=== PATIENT | female | born 1940 | race Two or more races ===

== ENCOUNTER → 2016-09-20 | Outpatient (CLI) | payer MEDICARE, OTHER ==
[~2016-09-20] MED LIST: ALPR0.25 PO; ANAS1TAB6 PO; CLOP75TA28 PO; HYDR25TA4 PO; LEVO200T45 PO; LOSA50TA6 PO; NOR5T PO; PANT40TA2 PO; PIO30T PO; POTATAB17 PO; ROSU40TA PO
[2016-09-20 09:59] LABS: Urine RBC None Seen /hpf (0 - 4)
[2016-09-20 10:30] LABS: Basophils # (auto) 0 uL; Basophils % (auto) 0.6 % (0.0-2.0); Eosinophils # (auto) 0.1 uL; Eosinophils % (auto) 2.1 % (0.0-7.0); Hematocrit 46.1 % (36.0-46.0); Hemoglobin 14.9 g/dL (12.2-16.2); Lymphocytes # (auto) 1.2 uL; Lymphocytes % (auto) 19.5 % (10.0-50.0); Mean Corpuscular Hemoglobin 30.1 pg (28.0-32.0); Mean Corpuscular Hgb Conc. 32.2 g/dL (32.0-36.0); Mean Corpuscular Volume 93.3 fL (80.0-100.0); Mean Platelet Volume 8.9 fL (7.4-10.4); Monocytes # (auto) 0.4 uL; Monocytes % (auto) 6.7 % (0.0-12.0); Neutrophils # (auto) 4.5 uL; Neutrophils % (auto) 71.1 % (37.0-80.0); Platelet Count (auto) 245 10^3/uL (140-450); Red Cell Distribution Width 12.6 % (11.6-16.0); White Blood Cell 6.3 10^3/uL (4.4-10.8)
[2016-09-20 10:40] LABS: Urine Bilirubin Negative (Negative); Urine Blood Negative /uL (Negative); Urine Color Yellow (Yellow); Urine Glucose Normal (Normal); Urine Ketone Negative (Negative); Urine Nitrite Negative (Negative); Urine Squamous Epithelial Cell FEW /hpf (<5); Urine Urobilinogen Normal (Negative)
[2016-09-20 10:48] LABS: Albumin 3.8 g/dL (3.4-5.0); BUN/Creatinine Ratio 16.7; Bilirubin, Total 0.5 mg/dL (0.2-1.0); Calcium 9.4 mg/dL (8.5-10.1); Potassium 3.6 mmol/L (3.5-5.1); Total Protein 7.3 g/dL (6.4-8.2)
== END | disposition home or self-care (01) ==
LOC: LAB 08:45
PROVIDERS: ATTEND Internal Medicine
DX: Z00.00 Encounter for general adult medical examination without abnormal findings (principal)
CPT/HCPCS: 36415; 80053; 80061; 81001; 82043; 83036; 84443; 85025

== ENCOUNTER → 2016-09-20 | Outpatient (CLI) | payer MEDICARE, OTHER | END | disposition home or self-care (01) | LOC: LAB 10:00 | PROVIDERS: ATTEND Physician Assistant | DX: L57.9 Skin changes due to chronic exposure to nonionizing radiation, unspecified (principal) ==

== ENCOUNTER → 2016-11-12 | Outpatient (CLI) | payer MEDICARE, OTHER ==
[2016-11-12 09:14] LABS: Basophils # (auto) 0 uL; Basophils % (auto) 0.7 % (0.0-2.0); Eosinophils # (auto) 0.1 uL; Eosinophils % (auto) 2.1 % (0.0-7.0); Hematocrit 46.6 % (36.0-46.0); Hemoglobin 15.6 g/dL (12.2-16.2); Lymphocytes % (auto) 30.1 % (10.0-50.0); Mean Corpuscular Hgb Conc. 33.5 g/dL (32.0-36.0); Mean Corpuscular Volume 92.4 fL (80.0-100.0); Mean Platelet Volume 8.4 fL (7.4-10.4); Monocytes # (auto) 0.5 uL; Neutrophils # (auto) 3.9 uL; Neutrophils % (auto) 59.1 % (37.0-80.0); Platelet Count (auto) 263 10^3/uL (140-450); Red Cell Distribution Width 13.3 % (11.6-16.0); White Blood Cell 6.5 10^3/uL (4.4-10.8)
[2016-11-12 09:43] LABS: Albumin 3.9 g/dL (3.4-5.0); BUN/Creatinine Ratio 16.5; Bilirubin, Total 0.4 mg/dL (0.2-1.0); Calcium 9.8 mg/dL (8.5-10.1); Total Protein 7.5 g/dL (6.4-8.2)
== END | disposition home or self-care (01) ==
LOC: LAB 07:51
PROVIDERS: ATTEND Internal Medicine
DX: I74.9 Embolism and thrombosis of unspecified artery (principal); C50.912 Malignant neoplasm of unspecified site of left female breast; K22.719 Barrett's esophagus with dysplasia, unspecified
CPT/HCPCS: 36415; 80053; 83615; 85025

== ENCOUNTER → 2017-01-14 | Outpatient (CLI) | payer MEDICARE, OTHER ==
[~2017-01-14] MED LIST changes: +HYDR-4663 PO; -NOR5T PO
== END | disposition home or self-care (01) ==
LOC: LAB 07:27
PROVIDERS: ATTEND Internal Medicine
DX: R05 Cough (principal)
CPT/HCPCS: 36415; 82565; 83036; 84443; 84520

== ENCOUNTER → 2017-02-28 | Outpatient (CLI) | payer MEDICARE, OTHER | END | disposition home or self-care (01) | LOC: Rad HDHVI 14:39 | PROVIDERS: ATTEND Internal Medicine Cardiovascular Disease | DX: I08.0 Rheumatic disorders of both mitral and aortic valves (principal); G45.9 Transient cerebral ischemic attack, unspecified | CPT/HCPCS: 93306 ==

== ENCOUNTER → 2017-03-08 | Outpatient (CLI) | payer MEDICARE, OTHER ==
[~2017-03-08] MED LIST changes: +ADENOSINE 67 MG in GIVE UN-DILUTED 0 ML IV ONE; +ADENOSINE 90 MG/30 ML INJ IV ONE
== END | disposition home or self-care (01) ==
LOC: Rad HDHVI 13:17
PROVIDERS: ATTEND Internal Medicine Cardiovascular Disease
DX: I08.0 Rheumatic disorders of both mitral and aortic valves (principal); I10 Essential (primary) hypertension; E11.9 Type 2 diabetes mellitus without complications; R03.0 Elevated blood-pressure reading, without diagnosis of hypertension; E78.00 Pure hypercholesterolemia, unspecified
CPT/HCPCS: 78452; 93005; 96374; 96375; A9500; J0153

== ENCOUNTER → 2017-04-21 | Outpatient (CLI) | payer MEDICARE, OTHER ==
[~2017-04-21] MED LIST changes: -ADENOSINE 67 MG in GIVE UN-DILUTED 0 ML IV ONE; -ADENOSINE 90 MG/30 ML INJ IV ONE
== END | disposition home or self-care (01) ==
LOC: LAB 07:46
DX: I67.1 Cerebral aneurysm, nonruptured (principal)
CPT/HCPCS: 36415; 82565; 84520

== ENCOUNTER → 2017-05-19 | Outpatient (CLI) | payer MEDICARE, OTHER ==
[2017-05-19 07:57] LABS: Basophils # (auto) 0 uL; Eosinophils # (auto) 0.1 uL; Eosinophils % (auto) 2.6 % (0.0-7.0); Hematocrit 43.3 % (36.0-46.0); Hemoglobin 14.5 g/dL (12.2-16.2); Lymphocytes # (auto) 1.6 uL; Lymphocytes % (auto) 35.8 % (10.0-50.0); Mean Corpuscular Hemoglobin 31.8 pg (28.0-32.0); Mean Corpuscular Hgb Conc. 33.6 g/dL (32.0-36.0); Mean Corpuscular Volume 94.7 fL (80.0-100.0); Mean Platelet Volume 8.4 fL (6.9-10.8); Monocytes # (auto) 0.4 uL; Monocytes % (auto) 7.8 % (0.0-12.0); Neutrophils # (auto) 2.4 uL; Neutrophils % (auto) 52.8 % (37.0-80.0); Nucleated Red Blood Cells % 0.2 %; Platelet Count (auto) 171 10^3/uL (140-450); Red Cell Distribution Width 13.2 % (11.8-14.3); White Blood Cell 4.5 10^3/uL (4.4-10.8)
[2017-05-19 08:29] LABS: Albumin 3.7 g/dL (3.4-5.0); BUN/Creatinine Ratio 20.2; Bilirubin, Total 0.4 mg/dL (0.2-1.0); Calcium 9.1 mg/dL (8.5-10.1); Potassium 3.5 mmol/L (3.5-5.1); Total Protein 7.2 g/dL (6.4-8.2)
== END | disposition home or self-care (01) ==
LOC: LAB 07:24
PROVIDERS: ATTEND Internal Medicine
DX: C50.912 Malignant neoplasm of unspecified site of left female breast (principal); K22.719 Barrett's esophagus with dysplasia, unspecified
CPT/HCPCS: 36415; 80053; 83615; 85025

== ENCOUNTER → 2017-07-18 | Outpatient (CLI) | payer MEDICARE, OTHER ==
[~2017-07-18] MED LIST changes: -HYDR-4663 PO; +HYDR-4683 PO
== END | disposition home or self-care (01) ==
LOC: LAB 13:26
PROVIDERS: ATTEND Internal Medicine
DX: C50.911 Malignant neoplasm of unspecified site of right female breast (principal)
CPT/HCPCS: 36415; 82565; 84520; 86300

== ENCOUNTER → 2017-10-06 | Outpatient (CLI) | payer MEDICARE, OTHER | END | disposition home or self-care (01) | LOC: LAB 06:39 | DX: I67.1 Cerebral aneurysm, nonruptured (principal) | CPT/HCPCS: 36415; 82565; 84520 ==

== ENCOUNTER → 2017-10-21 | Outpatient (CLI) | payer MEDICARE, OTHER ==
[2017-10-21 09:40] LABS: Basophils # (auto) 0 uL; Basophils % (auto) 0.5 % (0.0-2.0); Eosinophils # (auto) 0.1 uL; Eosinophils % (auto) 2.7 % (0.0-7.0); Hematocrit 45.2 % (36.0-46.0); Hemoglobin 15.2 g/dL (12.2-16.2); Lymphocytes # (auto) 1.3 uL; Lymphocytes % (auto) 33.1 % (10.0-50.0); Mean Corpuscular Hemoglobin 31.8 pg (28.0-32.0); Mean Corpuscular Hgb Conc. 33.5 g/dL (32.0-36.0); Mean Corpuscular Volume 94.8 fL (80.0-100.0); Monocytes # (auto) 0.3 uL; Monocytes % (auto) 7.8 % (0.0-12.0); Neutrophils # (auto) 2.2 uL; Neutrophils % (auto) 55.9 % (37.0-80.0); Nucleated Red Blood Cells % 0.3 %; Platelet Count (auto) 197 10^3/uL (140-450); Red Blood Cells 4.77 10^6/uL (4.0-5.20); Red Cell Distribution Width 13.4 % (11.8-14.3); White Blood Cell 3.8 10^3/uL (4.4-10.8)
[2017-10-21 10:12] LABS: BUN/Creatinine Ratio 18.1; Bilirubin, Total 0.4 mg/dL (0.2-1.0); Calcium 9.3 mg/dL (8.5-10.1); Potassium 3.3 mmol/L (3.5-5.1); Total Protein 7.4 g/dL (6.4-8.2)
== END | disposition home or self-care (01) ==
LOC: LAB 09:12
PROVIDERS: ATTEND Physician Assistant
DX: E11.9 Type 2 diabetes mellitus without complications (principal); E78.2 Mixed hyperlipidemia
CPT/HCPCS: 36415; 80053; 80061; 83036; 85025

== ENCOUNTER → 2017-12-16 | Outpatient (CLI) | payer MEDICARE, OTHER ==
[2017-12-16 09:07] LABS: Basophils # (auto) 0 uL; Basophils % (auto) 0.5 % (0.0-2.0); Eosinophils # (auto) 0.1 uL; Eosinophils % (auto) 2.7 % (0.0-7.0); Lymphocytes # (auto) 1.5 uL; Lymphocytes % (auto) 36.1 % (10.0-50.0); Mean Corpuscular Hemoglobin 32.8 pg (28.0-32.0); Mean Corpuscular Hgb Conc. 33.3 g/dL (32.0-36.0); Mean Corpuscular Volume 98.7 fL (80.0-100.0); Monocytes # (auto) 0.3 uL; Monocytes % (auto) 6.6 % (0.0-12.0); Neutrophils # (auto) 2.3 uL; Neutrophils % (auto) 54.1 % (37.0-80.0); Platelet Count (auto) 183 10^3/uL (140-450); Red Blood Cells 4.56 10^6/uL (4.0-5.20); Red Cell Distribution Width 14.2 % (11.8-14.3); White Blood Cell 4.3 10^3/uL (4.4-10.8)
[2017-12-16 09:47] LABS: Albumin 4.1 g/dL (3.4-5.0); Bilirubin, Total 0.4 mg/dL (0.2-1.0); Calcium 9.5 mg/dL (8.5-10.1); Potassium 3.8 mmol/L (3.5-5.1); Total Protein 7.5 g/dL (6.4-8.2)
== END | disposition home or self-care (01) ==
LOC: LAB 08:42
PROVIDERS: ATTEND Internal Medicine
DX: C50.919 Malignant neoplasm of unspecified site of unspecified female breast (principal); K22.719 Barrett's esophagus with dysplasia, unspecified; E11.9 Type 2 diabetes mellitus without complications; I10 Essential (primary) hypertension; E03.9 Hypothyroidism, unspecified; E78.00 Pure hypercholesterolemia, unspecified
CPT/HCPCS: 36415; 80053; 83615; 85025

== ENCOUNTER → 2018-01-12 | Outpatient (CLI) | payer MEDICARE, OTHER ==
[2018-01-12 11:18] LABS: Free T3 1.34 pg/mL (2.3-4.2); Free T4 (Free Thyroxine) 0.71 ng/dL (0.89-1.76)
== END | disposition home or self-care (01) ==
LOC: LAB 10:10
PROVIDERS: ATTEND Physician Assistant
DX: E03.9 Hypothyroidism, unspecified (principal); E11.9 Type 2 diabetes mellitus without complications; I10 Essential (primary) hypertension
CPT/HCPCS: 36415; 84439; 84443; 84481

== ENCOUNTER 2018-09-14 16:45 | Emergency (ER) | payer MEDICARE, OTHER ==
[~2018-09-14] VITALS: Ht 165.1 cm; Wt 83.9 kg
[~2018-09-14 16:45] MED LIST changes: -ANAS1TAB6 PO; +ANAS1TAB7 PO; -LEVO200T45 PO; +LEVO200T7 PO; +LOSA-46 PO; -LOSA50TA6 PO
[2018-09-14 18:25] LABS: Basophils # (auto) 0 uL; Basophils % (auto) 0.7 % (0.0-2.0); Eosinophils # (auto) 0.1 uL; Eosinophils % (auto) 0.7 % (0.0-7.0); Hematocrit 46.2 % (36.0-46.0); Hemoglobin 15.7 g/dL (12.2-16.2); Lymphocytes % (auto) 14.9 % (10.0-50.0); Mean Corpuscular Hgb Conc. 33.9 g/dL (32.0-36.0); Mean Corpuscular Volume 97.3 fL (80.0-100.0); Monocytes # (auto) 0.5 uL; Monocytes % (auto) 7.8 % (0.0-12.0); Neutrophils # (auto) 5.3 uL; Neutrophils % (auto) 75.9 % (37.0-80.0); Platelet Count (auto) 193 10^3/uL (140-450); Red Blood Cells 4.75 10^6/uL (4.0-5.20); Red Cell Distribution Width 13.5 % (11.8-14.3)
[2018-09-14 18:39] LABS: Albumin 4.1 g/dL (3.4-5.0); Calcium 9.3 mg/dL (8.5-10.1)
[2018-09-14 18:40] LABS: BUN/Creatinine Ratio 18.5
[2018-09-14 18:43] LABS: Bilirubin, Total 0.6 mg/dL (0.2-1.0); Total Protein 7.9 g/dL (6.4-8.2)
[2018-09-14 20:02] VITALS: BP 124/90
[2018-09-14] MEDS ORDERED: SODIUM CHLORIDE 0.9% 1,000 ML IV ONE (20:15)
[2018-09-14] MEDS ORDERED: cefTRIAXone 1GM/50ML D5W 50 ML IV ONE (20:15)
[2018-09-14] MEDS ORDERED: methylPREDNISolone SOD SUCC 125 MG/2 ML VL IV ONE (20:15)
[2018-09-14] MEDS ORDERED: diphenhdrAMINE HCL 50 MG/1 ML VL IV ONE (20:30)
[2018-09-14 20:36] LABS: Urine Bacteria NONE SEEN /hpf (None Seen); Urine Blood 1+ /uL (Negative); Urine Specific Gravity 1.019 (1.001-1.035); Urine WBC 20 /hpf (0 - 5)
== END 2018-09-14 21:45 | disposition home or self-care (01) ==
LOC: ER 16:45
DX: H65.93 Unspecified nonsuppurative otitis media, bilateral (principal); R09.82 Postnasal drip; N39.0 Urinary tract infection, site not specified; R05 Cough; E86.0 Dehydration; H69.83 Other specified disorders of Eustachian tube, bilateral; E11.9 Type 2 diabetes mellitus without complications; K21.9 Gastro-esophageal reflux disease without esophagitis; I10 Essential (primary) hypertension; E07.9 Disorder of thyroid, unspecified; Z88.8 Allergy status to other drugs, medicaments and biological substances; Z79.01 Long term (current) use of anticoagulants; Z79.899 Other long term (current) drug therapy
CPT/HCPCS: 36415; 70450; 80053; 81001; 84443; 85025; 93005; 96365; 96375; 99284; J0696; J1200; J2930; J7030

== ENCOUNTER → 2018-09-20 | Outpatient (CLI) | payer MEDICARE, OTHER ==
[2018-09-20 11:42] LABS: Free T4 (Free Thyroxine) 1.68 ng/dL (0.89-1.76); T3 Total 0.86 ng/mL (0.60-1.81)
== END | disposition home or self-care (01) ==
LOC: LAB 09:26
PROVIDERS: ATTEND Physician Assistant
DX: E11.9 Type 2 diabetes mellitus without complications (principal); E03.9 Hypothyroidism, unspecified; E78.2 Mixed hyperlipidemia
CPT/HCPCS: 36415; 84439; 84443; 84480

== ENCOUNTER → 2019-01-26 | Outpatient (CLI) | payer MEDICARE, OTHER ==
[2019-01-26 09:29] LABS: Urine Bacteria NONE SEEN /hpf (None Seen); Urine Blood Negative /uL (Negative); Urine Specific Gravity 1.018 (1.001-1.035); Urine WBC 4 /hpf (0 - 5)
[2019-01-26 09:35] LABS: Basophils # (auto) 0 uL; Basophils % (auto) 0.7 % (0.0-2.0); Eosinophils # (auto) 0.1 uL; Eosinophils % (auto) 1.7 % (0.0-7.0); Hematocrit 46.6 % (36.0-46.0); Hemoglobin 15.8 g/dL (12.2-16.2); Lymphocytes # (auto) 1.3 uL; Lymphocytes % (auto) 31.1 % (10.0-50.0); Mean Corpuscular Hemoglobin 31.5 pg (28.0-32.0); Mean Corpuscular Hgb Conc. 33.9 g/dL (32.0-36.0); Mean Corpuscular Volume 92.9 fL (80.0-100.0); Monocytes # (auto) 0.4 uL; Monocytes % (auto) 10.3 % (0.0-12.0); Neutrophils # (auto) 2.4 uL; Neutrophils % (auto) 56.2 % (37.0-80.0); Nucleated Red Blood Cells % 0.2 %; Platelet Count (auto) 175 10^3/uL (140-450); Red Blood Cells 5.01 10^6/uL (4.0-5.20); Red Cell Distribution Width 12.8 % (11.8-14.3); White Blood Cell 4.3 10^3/uL (4.4-10.8)
[2019-01-26 09:37] LABS: Albumin 4.1 g/dL (3.4-5.0); Potassium 4.2 mmol/L (3.5-5.1)
[2019-01-26 09:42] LABS: BUN/Creatinine Ratio 17.8; Bilirubin, Total 0.6 mg/dL (0.2-1.0); Calcium 10.1 mg/dL (8.5-10.1); Total Protein 7.5 g/dL (6.4-8.2)
== END | disposition home or self-care (01) ==
LOC: LAB 08:44
PROVIDERS: ATTEND Physician Assistant
DX: E11.9 Type 2 diabetes mellitus without complications (principal); E03.9 Hypothyroidism, unspecified; I10 Essential (primary) hypertension; E78.2 Mixed hyperlipidemia
CPT/HCPCS: 36415; 80053; 80061; 81001; 83036; 84443; 85025

== ENCOUNTER → 2019-03-01 | Outpatient (CLI) | payer MEDICARE, OTHER ==
[~2019-03-01] MED LIST changes: -HYDR-4683 PO; +HYDR-4833 PO; -LOSA-46 PO; +LOSA-69 PO
== END | disposition home or self-care (01) ==
LOC: XYW 09:07
PROVIDERS: ATTEND Internal Medicine
DX: Z01.810 Encounter for preprocedural cardiovascular examination (principal); I05.9 Rheumatic mitral valve disease, unspecified; I11.0 Hypertensive heart disease with heart failure; I50.9 Heart failure, unspecified; Z87.19 Personal history of other diseases of the digestive system
CPT/HCPCS: 93306

== ENCOUNTER → 2019-03-08 | Outpatient (CLI) | payer MEDICARE, OTHER ==
[~2019-03-08] VITALS: Ht 165.1 cm; Wt 81.6 kg
[~2019-03-08] MED LIST changes: +ADENOSINE 69 MG in GIVE UN-DILUTED 0 ML IV STA
== END | disposition home or self-care (01) ==
LOC: XY 07:26
PROVIDERS: ATTEND Internal Medicine
DX: Z01.810 Encounter for preprocedural cardiovascular examination (principal)
CPT/HCPCS: 78452; 93017; A9500; J0153

== ENCOUNTER 2019-03-30 09:51 | Day surgery (SDC) | payer MEDICARE, OTHER ==
[2019-03-26 14:12] LABS: Basophils # (auto) 0.1 uL; Basophils % (auto) 0.9 % (0.0-2.0); Eosinophils # (auto) 0.1 uL; Eosinophils % (auto) 1.6 % (0.0-7.0); Hematocrit 46.9 % (36.0-46.0); Lymphocytes # (auto) 1.3 uL; Lymphocytes % (auto) 23.2 % (10.0-50.0); Mean Corpuscular Hemoglobin 31.6 pg (28.0-32.0); Monocytes # (auto) 0.4 uL; Monocytes % (auto) 6.6 % (0.0-12.0); Neutrophils # (auto) 3.8 uL; Neutrophils % (auto) 67.7 % (37.0-80.0); Nucleated Red Blood Cells % 0.1 %; Platelet Count (auto) 193 10^3/uL (140-450); Red Blood Cells 5.05 10^6/uL (4.0-5.20); Red Cell Distribution Width 13.6 % (11.8-14.3); White Blood Cell 5.5 10^3/uL (4.4-10.8)
[2019-03-26 14:26] LABS: INR 0.96 (0.9-1.15); Partial Thromboplastin Time 25.9 sec (23.64-32.05)
[~2019-03-30] VITALS: Ht 165.1 cm; Wt 80.7 kg
[~2019-03-30 09:51] MED LIST changes: -ADENOSINE 69 MG in GIVE UN-DILUTED 0 ML IV STA; -ANAS1TAB7 PO; +GABA100C9 PO; -HYDR-4833 PO; -HYDR25TA4 PO; +LISI40TA PO; -LOSA-69 PO; +OMEP20TA PO; -PANT40TA2 PO; -PIO30T PO
[2019-03-30] MEDS ORDERED: LIDOCAINE VISCOUS 2% 15ML UD ONE (10:17)
[2019-03-30] MEDS ORDERED: SODIUM CHLORIDE LOCK 10 ML ONE (10:17)
[2019-03-30] MEDS ORDERED: diphenhdrAMINE HCL 50 MG/1 ML VL ONE (10:18)
[2019-03-30] MEDS: MIDAZOLAM HCL 5 MG/ML-1ML VIAL ONE ×2 (11:12→11:15)
[2019-03-30] MEDS: fentaNYL CITRATE 100 MCG/2 ML VL ONE ×2 (11:12→11:15)
[2019-03-30 11:48] VITALS: BP 114/57
== END 2019-03-30 11:55 | disposition home or self-care (01) ==
LOC: GI 09:51
PROVIDERS: ATTEND Internal Medicine Gastroenterology
DX: K31.89 Other diseases of stomach and duodenum (principal); K44.9 Diaphragmatic hernia without obstruction or gangrene; K21.9 Gastro-esophageal reflux disease without esophagitis; Z79.899 Other long term (current) drug therapy; Z90.10 Acquired absence of unspecified breast and nipple; Z88.8 Allergy status to other drugs, medicaments and biological substances; Z98.890 Other specified postprocedural states
CPT/HCPCS: 36415; 43239; 85025; 85610; 85730; 88305; 88313; J2250; J3010; J7030

== ENCOUNTER → 2020-10-21 | Outpatient (CLI) | payer MEDICARE, OTHER ==
[~2020-10-21] MED LIST changes: -LISI40TA PO; +LISI40TA11 PO
== END | disposition home or self-care (01) ==
LOC: LAB 10:39
PROVIDERS: ATTEND Physician Assistant
DX: S09.90XD Unspecified injury of head, subsequent encounter (principal); R51.9 Headache, unspecified; X58.XXXD Exposure to other specified factors, subsequent encounter
CPT/HCPCS: 36415; 82565; 84520